=== PATIENT | female | born 1965 | race African-American/Black ===

== ENCOUNTER 2016-12-28 07:53 | Day surgery (SDC) | payer OTHER ==
[~2016-12-28] VITALS: Ht 167.6 cm; Wt 77.8 kg
[2016-12-28] MEDS ORDERED: METFORMIN (10:03)
[2016-12-28] MEDS ORDERED: NORVASC (10:03)
[2016-12-28 10:11] VITALS: Ht 167.6 cm; Wt 77.8 kg
[2016-12-28 10:17] VITALS: BP 138/80; PULSE 63; RESP 24
[2016-12-28] MEDS ORDERED: MIDAZOLAM 1 MG/ML 2 ML INJ ONE ×2 (10:53)
[2016-12-28] MEDS ORDERED: FENTAnyl 50 MCG/ML VIAL ONE (10:53)
[2016-12-28 11:22] VITALS: BP 137/87; RESP 12
--- NOTE | 2017-01-08 05:14 | GILP ---
DATE OF PROCEDURE: PROCEDURE PERFORMED: Colonoscopy and biopsy. SURGEON: Dr. Aaliyah Lyon. PREOPERATIVE DIAGNOSIS: Screening colonoscopy. POSTOPERATIVE DIAGNOSES: 1. Colonoscopy all the way to the cecum. 2. 2 small right colon polyps were removed using the biopsy forceps. 3. Internal hemorrhoids. INDICATION: Ms. Ephraim Deutsch is a 51-year-old female patient who is scheduled for screening colonoscopy. The procedure and possible complications were well explained to the patient. The patient understood and consented to the procedure. DESCRIPTION OF PROCEDURE: Under influence of fentanyl and Versed, the colonoscope was carefully introduced in the rectum and under direct vision, it was advanced all the way to the cecum. FINDINGS: Patient had 2 small right colon polyps and they were removed using the biopsy forceps. She was noted to have internal hemorrhoids. She tolerated the procedure very well and there were no complications from the procedure. At the end of the procedure, she was awake with stable vital signs and she was discharged under the care of her family. IMPRESSION: 1. Colonoscopy all the way to the cecum. 2. Right colon polyps were removed using the biopsy forceps. 3. Internal hemorrhoids. PLAN: 1. Await histopathology report. 2. Next screening colonoscopy in 4 years. Dictated By: MD YAJAIRA Mills/[email or web address] /Document#: [id number] CC: Aaliyah Lyon MD;*[facility]*
== END 2016-12-28 15:37 | disposition home or self-care (01) ==
LOC: GIL 07:53
PROVIDERS: ATTEND Internal Medicine Gastroenterology
DX: Z12.11 Encounter for screening for malignant neoplasm of colon (principal); K64.8 Other hemorrhoids; I10 Essential (primary) hypertension; E11.9 Type 2 diabetes mellitus without complications
CPT/HCPCS: 45380; 82962; 88305; J2250; J3010; Z7610